=== PATIENT | male | born 1955 | race Hispanic/Latino ===

== ENCOUNTER 2020-12-16 13:22 | Outpatient (CLI) | payer MEDICARE ==
--- NOTE | 2020-12-16 13:57 | XRay Report ---
RIGHT KNEE HISTORY: Acute right knee pain. COMPARISON: None. TECHNIQUE: 3 views of the right knee obtained. FINDINGS: Bones: There is slight irregularity along the central aspect of the lateral tibial plateau. This is s een on the oblique view only near the intercondylar eminence. Joint spaces: Maintained. Soft tissues: Suspected joint effusion. Additional findings: None. IMPRESSION: There is slight irregularity along the central aspect of the lateral tibial plateau. This is seen on the oblique view only near the intercondylar eminence. Additionally, there is a suspected joint effus ion. The presence of some degree of internal soft tissue/avulsion like injury may be present. Conside r further evaluation with CT or MRI pain persists. Signer Name: Devan Polanco MD Signed: 12/16/2020 1:53 PM Workstation Name: [id number]
== END 2020-12-16 13:23 | disposition home or self-care (01) ==
LOC: SPVIMAG 13:22
PROVIDERS: ATTEND Internal Medicine
DX: M25.561 Pain in right knee (principal)